=== PATIENT | male | born 1970 | race Caucasian/White ===

== ENCOUNTER 2016-06-06 12:37 | Day surgery (SDC) | payer OTHER ==
[~2016-06-06 12:37] MED LIST: BUPIVACAINE HCL/PF 0.5% (5MG/ML) 10 ML VIAL IJ ONE
[2016-06-06] MEDS ORDERED: PIPERACILLIN/TAZOB 4.5 GM/100 ML PRE-DOCKED IVPB ONE (12:57)
[2016-06-06] MEDS ORDERED: LORAZEPAM CARPU-JECT 2 MG/ML DISP.SYRIN IVPUSH ONE (12:58)
[2016-06-06] MEDS ORDERED: DEXTROSE 5%-0.45% SALINE 1,000 ML IV SCH (13:00)
[2016-06-06] MEDS ORDERED: LORAZEPAM CARPU-JECT 2 MG/ML DISP.SYRIN ONE (13:00)
[2016-06-06] MEDS ORDERED: PIPERACILLIN/TAZOB 4.5 GM 100 ML IVPB ONE (13:01)
[2016-06-06 13:20] LABS: BASOPHIL 0.6 % (0-2.0); EOSINOPHIL 2.2 % (0-4.5); MCH 35.5 pg (25.7-33.7); MCHC 35.1 g/dl (32.0-35.9); MEAN CELL VOLUME 101.1 fl (80-96); MEAN PLT VOLUME 8.6 fl (7.5-11.1); NEUTROPHILS 60.6 % (42.8-82.8); PLATELET COUNT 103 K/MM3 (134-434); RDW 12.2 % (11.9-15.9); WHITE BLOOD COUNT 4.7 K/mm3 (4.0-10.0)
--- NOTE | 2016-06-06 13:36 | HP ---
Admitting History and Physical - Admission Chief Complaint: Redness and "bulging" near his belly button x 2 days History of Present Illness: 45 male sent by PMD for evaluation of an umbilical hernia Patient states that he had a known umbilical hernia x 10 years and had never had it repaired States that he was lifting heavy objects when he notice a bulge at the area The bulge has persisted and he noticed that the area became red and swollen x 2 days No nausea/vomiting No fevers/chills +BM History Source: Patient Limitations to Obtaining History: No Limitations - Past Surgical History Past Surgical History: Yes: Hernia Repair (Right inguinal hernia repair) - Smoking History Smoking history: Former smoker Have you smoked in the past 12 months: No If you are a former smoker, when did you quit?: 2016 - Alcohol/Substance Use Hx Alcohol Use: No History of Substance Use: reports: None - Social History ADL: Independent Home Medications - Allergies Allergies/Adverse Reactions: Allergies Allergy/AdvReac Type Severity Reaction Status Date / Time No Known Allergies Allergy Verified 06/06/16 12:40 - Home Medications Home Medications: Ambulatory Orders NK [No Known Home Medication] 06/06/16 Family Disease History - Family Disease History Family History: Unremarkable Review of Systems - Review of Systems Constitutional: denies: Chills, Fever HENT: reports: No Symptoms Neck: reports: No Symptoms Cardiovascular: denies: Chest Pain Respiratory: denies: Cough Gastrointestinal: denies: Abdominal Pain, Nausea, Vomiting Genitourinary: reports: No Symptoms Neurological: reports: No Symptoms. denies: Change in LOC Pain Intensity: 1 Physical Examination Vital Signs: Vital Signs Temperature 98.1 F 06/06/16 12:41 Pulse Rate 82 06/06/16 13:30 Respiratory Rate 20 06/06/16 13:30 Blood Pressure 173/111 06/06/16 13:30 O2 Sat by Pulse Oximetry (%) 100 06/06/16 13:30 Constitutional: Yes: Calm HENT: Yes: WNL Neck: Yes: Supple Cardiovascular: Yes: Regular Rate and Rhythm Respiratory: Yes: CTA Bilaterally Gastrointestinal: Yes: Soft, Tenderness (Mild tenderness at umbilicus), Other ( Umbilicus: nonreducible hernia, + erythema within the umbilicus extending approximately 4cm circumferentially). No: Distention Extremities: Yes: WNL Neurological: Yes: Alert, Oriented Labs: CBC, BMP 06/06/16 13:13 Problem List - Problems (1) Incarcerated umbilical hernia Code(s): K42.0 - UMBILICAL HERNIA WITH OBSTRUCTION, WITHOUT GANGRENE Assessment/Plan 45 male with incarcerated umbilical hernia Possible bowel incarceration NPO IV fluids Antibiotics For emergent open umbilical hernia repair with possible mesh possible bowel resection Risks and benefits explained He understands and agrees
--- NOTE | 2016-06-06 13:36 | PDOC ---
History of Present Illness <Amy Salazar - Last Filed: 06/06/16 13:37> - General History Source: Patient Exam Limitations: No Limitations - History of Present Illness Initial Comments: 06/06/16 13:38 45-year-old male presents with atraumatic mild to moderate periumbilical abdominal pain for the past several days after moving a heavy piece of furniture with increased redness to the umbilicus and the surrounding area. Pain is constant, nonradiating, not positional, without associated nausea/ vomiting/diarrhea. Patient denies fever or chills. Patient was seen by Dr. gutierrez not increased in size of surgery and diagnosed with incarcerated umbilical hernia and referred to the ER further evaluation and treatment. REVIEW OF SYSTEMS CONSTITUTIONAL: No fever, no chills, no fatigue EYES: No visual changes ENT: No ear pain, no sore throat CARDIOVASCULAR: No chest pain, no palpitations RESPIRATORY: No cough, no SOB GI: + abdominal pain, no nausea, no vomiting, no constipation, no diarrhea GENITOURINARY: No dysuria, no frequency, no hematuria MUSKULOSKELETAL: No backpain, no joint pain, no myalgias SKIN: No rash NEURO: No headache EXAMINATION CONSTITUTIONAL: Well-appearing; well-nourished; in no apparent distress HEAD: Normocephalic; atraumatic EYES: PERRL; EOM intact ENMT: External appears normal; normal oropharynx NECK: Supple; non-tender; no cervical lymphadenopathy CARD: Normal S1, S2; no murmurs, rubs, or gallops RESP: Normal chest excursion with respiration; breath sounds clear and equal bilaterally; no wheezes, rhonchi, or rales ABD: Soft, non-distended; + incarcerated umbilical hernia with a hard mass palpable within the hernial sac with surrounding area of erythema; EXT: Normal ROM in all four extremities; non-tender to palpation; distal pulses intact SKIN: Warm, dry, no rash NEURO: No focal neurological deficiencies. <Robert Buck - Last Filed: 06/06/16 13:40> - General Chief Complaint: Pain, Acute Stated Complaint: INCARCENATRD UNBILICAL HERNIA Time Seen by Provider: 06/06/16 12:41 Past History <Amy Salazar - Last Filed: 06/06/16 13:37> - Past Medical History GI Disorders: Yes (UMBILICAL HERNIA X 10YEARS.) - Psycho/Social/Smoking Cessation Hx Anxiety: No Suicidal Ideation: No Smoking History: Former smoker Have you smoked in the past 12 months: No If you are a former smoker, when did you quit?: 2016 Information on smoking cessation initiated: No Hx Alcohol Use: No Drug/Substance Use Hx: No Substance Use Type: None <Robert Buck - Last Filed: 06/06/16 13:40> - Past Medical History Allergies/Adverse Reactions: Allergies Allergy/AdvReac Type Severity Reaction Status Date / Time No Known Allergies Allergy Verified 06/06/16 12:40 Home Medications: Ambulatory Orders NK [No Known Home Medication] 06/06/16 *Physical Exam - Vital Signs Last Vital Signs Temp Pulse Resp BP Pulse Ox 98.1 F 82 20 173/111 100 06/06/16 12:41 06/06/16 13:30 06/06/16 13:30 06/06/16 13:30 06/06/16 13:30 <Amy Salazar - Last Filed: 06/06/16 13:37> - Vital Signs Last Vital Signs Temp Pulse Resp BP Pulse Ox 98.1 F 82 20 173/111 100 06/06/16 12:41 06/06/16 13:30 06/06/16 13:30 06/06/16 13:30 06/06/16 13:30 <Robert Buck - Last Filed: 06/06/16 13:40> Heart Score/ECG Review - ECG Intrepretation Comment:: 06/06/16 13:37 Vent rate: 89 bpm WI interval: 124 ms QRS duration: 84 ms Normal sinus rhythm Normal EKG <Amy Salazar - Last Filed: 06/06/16 13:37> ED Treatment Course - LABORATORY CBC & Chemistry Diagram: 06/06/16 13:13 06/06/16 13:13 - ADDITIONAL ORDERS Additional order review: 06/06/16 13:13 RBC 4.66 MCV 101.1 H MCHC 35.1 RDW 12.2 MPV 8.6 Neutrophils % 60.6 Lymphocytes % 20.2 Monocytes % 16.4 H Eosinophils % 2.2 Basophils % 0.6 - Medications Given in the ED: ED Medications Discontinued Medications Generic Name Dose Route Start Last Admin Trade Name Freq PRN Reason Stop Dose Admin Lorazepam 1 mg 06/06/16 12:58 06/06/16 13:10 Ativan Injection - IVPUSH 06/06/16 12:59 1 mg ONCE ONE Administration Piperacillin Sod/Tazobactam Sod 4.5 gm 06/06/16 12:57 06/06/16 13:10 Zosyn 4.5gm Ivpb (Pre-Docked) IVPB 06/06/16 12:58 4.5 gm ONCE ONE Administration <Amy Salazar - Last Filed: 06/06/16 13:37> - LABORATORY CBC & Chemistry Diagram: 06/06/16 13:13 06/06/16 13:13 - ADDITIONAL ORDERS Additional order review: 06/06/16 13:13 RBC 4.66 MCV 101.1 H MCHC 35.1 RDW 12.2 MPV 8.6 Neutrophils % 60.6 Lymphocytes % 20.2 Monocytes % 16.4 H Eosinophils % 2.2 Basophils % 0.6 - RADIOLOGY Radiology Studies Ordered: Category Date Time Status CHEST - PA [RAD] Stat Radiology 06/06/16 12:57 Ordered - Medications Given in the ED: ED Medications Discontinued Medications Generic Name Dose Route Start Last Admin Trade Name Freq PRN Reason Stop Dose Admin Lorazepam 1 mg 06/06/16 12:58 06/06/16 13:10 Ativan Injection - IVPUSH 06/06/16 12:59 1 mg ONCE ONE Administration Piperacillin Sod/Tazobactam Sod 4.5 gm 06/06/16 12:57 06/06/16 13:10 Zosyn 4.5gm Ivpb (Pre-Docked) IVPB 06/06/16 12:58 4.5 gm ONCE ONE Administration <Robert Buck - Last Filed: 06/06/16 13:40> Medical Decision Making - Medical Decision Making 06/06/16 13:40 Patient is a 45-year-old male with acute incarcerated umbilical hernia with possible strangulation who requires emergent exploratory laparotomy. We'll administer antibiotics; will hydrate; we'll administer Ativan for anxiety likely causing elevated blood pressure in the ER. Will admit to Dr. gutierrez of surgery to the OR. <Robert Buck - Last Filed: 06/06/16 13:40> *DC/Admit/Observation/Transfer <Amy Salazar - Last Filed: 06/06/16 13:37> - Discharge Dispostion Admit: Yes <Robert Buck - Last Filed: 06/06/16 13:40> Diagnosis at time of Disposition: Incarcerated hernia - Referrals Referrals: Terell Gutierrez MD [Primary Care Provider] -
[2016-06-06 13:40] LABS: INR 1.15 (0.82-1.09); PROTHROMBIN TIME (PATIENT) 12.7 SEC (9.98-11.88)
[2016-06-06] MEDS ORDERED: HYDROmorphone HCL CARPU-JECT 1 MG/1 ML DISP.SYRIN IVPB PRN (13:40)
[2016-06-06] MEDS ORDERED: ONDANSETRON 4 MG/2 ML VIAL IVPB PRN (13:40)
[2016-06-06] MEDS ORDERED: LACTATED RINGERS SOLUTION 1,000 ML IV SCH (13:45)
[2016-06-06 13:46] LABS: ALBUMIN 3.9 g/dl (3.4-5.0); ANION GAP 10 (8-16); BILIRUBIN,TOTAL 1.2 mg/dL (0.2-1.0); CALCIUM 8.9 mg/dL (8.5-10.1); CO2 26 mmol/L (21-32); CREATININE 0.8 mg/dL (0.7-1.3); GLUCOSE,RANDOM 128 mg/dL (74-106); SGOT/AST 205 U/L (15-37); SGPT/ALT 239 U/L (12-78); TOT PROT 6.9 g/dl (6.4-8.2)
[2016-06-06 13:47] LABS: ALK PHOS 83 U/L (45-117)
[2016-06-06] MEDS ORDERED: MIDAZOLAM HCL 2 MG/2 ML SINGLE DOSE VIAL ONE (13:47)
[2016-06-06] MEDS ORDERED: PROPOFOL 20 ML ONE (13:47)
[2016-06-06] MEDS ORDERED: SUCCINYLCHOLINE CHLORIDE 200 MG/10 ML VIAL ONE (13:47)
[2016-06-06] MEDS ORDERED: ROCURONIUM BROMIDE 50 MG/5 ML VIAL ONE (13:49)
[2016-06-06] MEDS ORDERED: LIDOCAINE HCL/PF 2% SDV 5ML VIAL ONE (13:49)
[2016-06-06] MEDS ORDERED: LABETALOL HCL 5 MG/1 ML (100MG/20 ML VIAL) ONE (13:55)
[2016-06-06] MEDS ORDERED: hydrALAZINE HCL 20 MG/ML VIAL ONE (14:16)
[2016-06-06] MEDS ORDERED: DEXAMETHASONE SOD PHOSPHATE 4 MG/1 ML VIAL ONE (14:40)
[2016-06-06] MEDS ORDERED: GLYCOPYRROLATE 0.2 MG/1 ML VIAL ONE (15:10)
[2016-06-06] MEDS ORDERED: NEOSTIGMINE METHYLSULFATE 0.5 MG/ML - 10 ML MDV ONE (15:10)
[2016-06-06] MEDS ORDERED: KETOROLAC TROMETHAMINE 30 MG/1 ML VIAL ONE (15:11)
[2016-06-06] MEDS ORDERED: PHENYLEPHRINE HCL 10 MG/1 ML SINGLE DOSE VIAL ONE (15:19)
[2016-06-06] MEDS ORDERED: BUPIVACAINE HCL/PF 0.5% (5MG/ML) 10 ML VIAL IJ ONE (15:34)
[2016-06-06] MEDS ORDERED: amLODIPine BESYLATE 5 MG TABLET (FP) PO ONE (15:40)
[2016-06-06] MEDS ORDERED: OXYCODONE/APAP 5/325MG COMBO TABLET PO PRN (15:47)
[2016-06-06] MEDS ORDERED: ACETAMINOPHEN 325 MG TABLET (FP) PO PRN (15:51)
[2016-06-06] MEDS ORDERED: oxyCODONE HCL 5 MG TABLET PO PRN (15:51)
--- NOTE | 2016-06-06 15:54 | OP ---
Operative Note - Note: Operative Date: 06/06/16 Pre-Operative Diagnosis: Incarcerated umbilical hernia Operation: Open repair of incarcerated umbilical hernia Findings: Incarcerated omentum Post-Operative Diagnosis: Same as Pre-op Surgeon: Terell Coronado First Aid Teacher: Marko Mccloud Anesthesia: General Specimens Removed: Hernia content Estimated Blood Loss (mls): 30 Operative Report Dictated: Yes
--- NOTE | 2016-06-06 15:54 | CONSULT ---
Consult Reason for Consultation:: htn - History of Present Illness History of Present Illness: 45 male sent by PMD for evaluation of an umbilical hernia Patient states that he had a known umbilical hernia x 10 years and had never had it repaired States that he was lifting heavy objects when he notice a bulge at the area The bulge has persisted and he noticed that the area became red and swollen x 2 days pt noted with high bp-given labetolol and hydralazine no cp or sob - Past Medical History Cardio/Vascular: Yes: HTN - Past Surgical History Past Surgical History: Yes: Hernia Repair (Right inguinal hernia repair) - Alcohol/Substance Use Hx Alcohol Use: No History of Substance Use: reports: None - Smoking History Smoking history: Former smoker Have you smoked in the past 12 months: No If you are a former smoker, when did you quit?: 2016 - Social History ADL: Independent Home Medications - Allergies Allergies/Adverse Reactions: Allergies Allergy/AdvReac Type Severity Reaction Status Date / Time No Known Allergies Allergy Verified 06/06/16 12:40 - Home Medications Home Medications: Ambulatory Orders Docusate Sodium [Colace -] 100 mg PO TID #90 capsule 06/06/16 Oxycodone HCl/Acetaminophen [Percocet 5-325 mg Tablet] 1 - 2 tab PO Q6H #28 tab MDD 4 06/06/16 Review of Systems - Review of Systems Cardiovascular: denies: Chest Pain Respiratory: denies: SOB Gastrointestinal: reports: Abdominal Pain Physical Exam Vital Signs: Vital Signs Temperature 98.1 F 06/06/16 12:41 Pulse Rate 82 06/06/16 13:30 Respiratory Rate 20 06/06/16 13:30 Blood Pressure 173/111 06/06/16 13:30 O2 Sat by Pulse Oximetry (%) 100 06/06/16 13:30 Cardiovascular: Yes: Regular Rate and Rhythm Respiratory: Yes: Regular, CTA Bilaterally Problem List - Problems (1) Incarcerated umbilical hernia Assessment/Plan: s/p repair as per surgery Code(s): K42.0 - UMBILICAL HERNIA WITH OBSTRUCTION, WITHOUT GANGRENE (2) HTN (hypertension) Assessment/Plan: norvasc 5 mg daily bystolic 10 mg daily ekg cardio Code(s): I10 - ESSENTIAL (PRIMARY) HYPERTENSION (3) Abnormal LFTs Assessment/Plan: monitor will need w/u as outpatient Code(s): R79.89 - OTHER SPECIFIED ABNORMAL FINDINGS OF BLOOD CHEMISTRY
[2016-06-06] MEDS ORDERED: ONDANSETRON 4 MG/2 ML VIAL IVPUSH PRN (15:58)
[2016-06-06] MEDS: HYDROmorphone HCL CARPU-JECT 1 MG/1 ML DISP.SYRIN IVPUSH PRN ×2 (16:00→16:10)
--- NOTE | 2016-06-06 16:00 | SURG ---
Surgery Neon Technician Note Neon Technician: Marko Mccloud PA-C Date of Service: 06/06/16 Diagnosis: Incarcerated umbilical hernia Procedure: Open repair of incarcerated umbilical hernia (incarcerated omentum) I was present for the entirety of the operative procedure. For further detail, please refer to operative report. Visit type - Case Type Case Type: ED Admission - Emergency Emergency Visit: Yes ED Registration Date: 06/06/16 Care time: The patient presented to the Emergency Department on the above date and was hospitalized for further evaluation of their emergent condition. - New patient This patient is new to me today: Yes Date on this admission: 06/06/16
[2016-06-06] MEDS ORDERED: HYDROmorphone HCL CARPU-JECT 2 MG/1 ML DISP.SYRIN ONE (16:08)
[2016-06-06 18:16] VITALS: BMI 25.9
[2016-06-07 07:42] LABS: BASOPHIL 0.1 % (0-2.0); MCH 36.3 pg (25.7-33.7); MCHC 35.7 g/dl (32.0-35.9); MEAN CELL VOLUME 101.7 fl (80-96); MEAN PLT VOLUME 9.1 fl (7.5-11.1); NEUTROPHILS 84.2 % (42.8-82.8); PLATELET COUNT 106 K/MM3 (134-434); RDW 11.9 % (11.9-15.9)
--- NOTE | 2016-06-07 07:49 | OP ---
DATE OF OPERATION: 06/06/2016 SURGEON: Terell Coronado MD BODS DEVELOPER: GAMA De Leon PREOPERATIVE DIAGNOSIS: Incarcerated umbilical hernia. POSTOPERATIVE DIAGNOSIS: Incarcerated umbilical hernia with omental content. PROCEDURE: Open repair of incarcerated umbilical hernia with primary repair. SPECIMEN: Hernia content. ESTIMATED BLOOD LOSS: 30 mL. DRAINS: None. ANESTHESIA: GET. REASON FOR PROCEDURE: This is a 45-year-old gentleman who was sent for evaluation for possible incarcerated umbilical hernia. On exam, there was noted to be erythema and an irreducible umbilical hernia. Because of this, he was sent to the emergency room and immediately consented for an emergent open repair of an incarcerated umbilical hernia, possible mesh, possible bowel resection. The risks and benefits of the procedure were explained. These included bleeding, infection, recurrent hernia, DC, DVT, PE, injury to surrounding abdominal structures, mesh infection, staple line dehiscence, fascial dehiscence. In addition, in the holding area prior to surgery his blood pressure was noted to be very elevated, in the 200s systolic over 100s diastolic. His blood pressure was lowered with medication by Anesthesia. However, because of this, the risks of DC and stroke were also explained to him. He understood and informed consent was obtained. DESCRIPTION OF PROCEDURE: Patient was placed supine on the operating room table. He underwent general endotracheal intubation. The abdomen was prepped and draped in the usual sterile fashion. Timeout was performed. A supraumbilical curvilinear incision was made through the skin and subcutaneous tissue down to the level of the fascia. The incarcerated omental contents were immediately noted. Carefully circumferentially the contents were freed from the fascia. The fascia had to be opened inferiorly in order to further free the incarcerated hernia content. Once circumferentially freed, the incarcerated hernia content was examined and noted to be omentum. The omentum was clamped with Lesa clamps in multiple locations, excised, and removed as specimen. Silk 2-0 sutures were used to tie the omentum below the clamps. No bowel was noted to be included within the incarcerated hernia. Hemostasis was achieved with further silk sutures and electrocautery. The fascia was noted to be freely cleared intraabdominally with no underlying adhesions. The fascia was grasped with Pat clamps and closed using No. 1 Prolene suture x4 in figure-of-8 fashion. The wound was irrigated and suctioned, noted to be dry. The umbilicus was reapproximated to the fascia with 3-0 Vicryl sutures. The skin was closed using 4-0 Biosyn. Sterile dressings were applied. The patient tolerated the procedure well. He was continued to be observed in the hospital because of his high blood pressure. Description of the events was explained to both him and the family. Eyad SNYDER/[id number] MTDD
--- NOTE | 2016-06-07 08:19 | PN ---
Progress Note (short form) - Note Progress Note: POD#1 Pt without complaints of nausea/emesis. He tolerated a diet last pm and passed a small amount of flatus. Voiding on his own. Pt states that he had erythema to his skin prior to surgery around the umbilicus. Vital Signs Period Temp Pulse Resp BP Sys/Pearl Pulse Ox Last 24 Hr 97.7 F-98.4 F 82-95 18-22 130-209/87-126 94-100 PE: GEN: alert and appears comfortable Abd: Soft, non-distended, inc tenderness. Mild erythema to around the skin the skin approx 3x3cm. Steri-strips in place, no drainage. Dressing changed and replaced with new 4x4 gauze/tegaderm. Abd binder in place. CBC, BMP 02/18/17 06:00 02/18/17 06:00 Problem List - Problems (1) Incarcerated umbilical hernia Assessment/Plan: POD#1 s/p umbilical hernia repair for incarceration. Doing well surgically. Continue diet as tolerated Pain management OOB/ambulate Awaiting medical consult, pt with elevated BP, now improved Code(s): K42.0 - UMBILICAL HERNIA WITH OBSTRUCTION, WITHOUT GANGRENE
[2016-06-07 08:28] LABS: CALCIUM 8.7 mg/dL (8.5-10.1); CREATININE 0.7 mg/dL (0.7-1.3)
[2016-06-07 08:36] LABS: ALBUMIN 3.3 g/dl (3.4-5.0); ALK PHOS 73 U/L (45-117); ANION GAP 10 (8-16); BILIRUBIN,TOTAL 0.7 mg/dL (0.2-1.0); CALCIUM 8.4 mg/dL (8.5-10.1); CO2 26 mmol/L (21-32); CREATININE 0.7 mg/dL (0.7-1.3); GLUCOSE,RANDOM 112 mg/dL (74-106); SGOT/AST 95 U/L (15-37); SGPT/ALT 165 U/L (12-78); THYROID STIMULATING HORMONE 0.78 uIU/ml (0.358-3.74); TOT PROT 5.9 g/dl (6.4-8.2)
[2016-06-07] MEDS ORDERED: NEBIVOLOL 10 MG TABLET (FP) PO SCH (10:00)
[2016-06-07] MEDS ORDERED: amLODIPine BESYLATE 5 MG TABLET (FP) PO SCH (10:00)
--- NOTE | 2016-06-07 10:13 | DS ---
Physical Examination Vital Signs: Vital Signs Temperature 98.1 F 06/07/16 06:00 Pulse Rate 83 06/07/16 06:00 Respiratory Rate 20 06/07/16 06:00 Blood Pressure 135/94 06/07/16 06:00 O2 Sat by Pulse Oximetry (%) 97 06/06/16 21:00 Cardiovascular: Yes: WNL Respiratory: Yes: WNL Gastrointestinal: Yes: WNL Wound/Incision: Yes: Dressing Dry and Intact Labs: CBC, BMP 06/07/16 06:00 06/07/16 06:00 Discharge Summary Reason For Visit: INCARCERATED UNBILICAL HERNIA Current Active Problems Abnormal LFTs (Acute) HTN (hypertension) (Acute) Incarcerated hernia (Acute) Incarcerated umbilical hernia (Acute) Hospital Course: (1) Incarcerated umbilical hernia Assessment/Plan: s/p repair as per surgery Code(s): K42.0 - UMBILICAL HERNIA WITH OBSTRUCTION, WITHOUT GANGRENE (2) HTN (hypertension) Assessment/Plan: norvasc 5 mg daily bystolic 10 mg daily ekg cardio Code(s): I10 - ESSENTIAL (PRIMARY) HYPERTENSION (3) Abnormal LFTs Assessment/Plan: monitor will need w/u as outpatient Code(s): R79.89 - OTHER SPECIFIED ABNORMAL FINDINGS OF BLOOD CHEMISTRY DISCHARGE IF OK WITH SURGERY CASE D/W PCP 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 You may walk unlimited cintia of and climb stairs. You may resume driving the car when you feel safe and comfortable behind the wheel. Wound care If you have a bandage, leave it on, and keep dry for 48-72 hours. After that time discard the outer bandage. If there are tapes on the skin under the outer bandage, leave them in place. They will peel off in the next 7 to 10 days. Do Not Peel them off. You may shower the day after surgery. If there are tapes present on the skin, you may shower over them. Diet There are no dietary restrictions. Eat healthy, high-fiber foods. Drink 6 to 8 glasses of liquid each day. This will assist in keeping your bowels are regular. Pain management You may take Tylenol or acetaminophen or Ibuprofen (for example, Motrin, Advil etc.) Any pain prescription medication ordered should be taken as prescribed for moderate to severe pain. Call Dr. Coronado for any of the following: Severe pain not relieved by medication Fever of 101 or higher Excessive bleeding or drainage on dressing Inability to urinate Call the office for an appointment in seven days. Referrals: Terell Coronado MD [Primary Care Provider] - Disposition: HOME - Home Medications Comprehensive Discharge Medication List: Ambulatory Orders Docusate Sodium [Colace -] 100 mg PO TID #90 capsule 06/06/16 Oxycodone HCl/Acetaminophen [Percocet 5-325 mg Tablet] 1 - 2 tab PO Q6H #28 tab MDD 4 06/06/16
[2016-06-07 11:57] VITALS: BP 156/97; PULSE 75; TEMP 99
--- NOTE | 2016-06-07 13:30 | EKG ---
Test Reason : Blood Pressure : / mmHG Vent. Rate : 078 BPM Atrial Rate : 078 BPM P-R Int : 134 ms QRS Dur : 086 ms QT Int : 430 ms P-R-T Axes : 038 031 048 degrees QTc Int : 490 ms NORMAL SINUS RHYTHM NONSPECIFIC T WAVE ABNORMALITY PROLONGED QT ABNORMAL ECG WHEN COMPARED WITH ECG OF 06-JUN-2016 13:02, NO SIGNIFICANT CHANGE WAS FOUND Confirmed by JERRI MIX MD ([id number]) on 06/07/2016 1:29:54 PM Referred By: ALESSIA Confirmed By:JERRI MIX MD
--- NOTE | 2016-06-07 13:41 | EKG ---
Test Reason : Blood Pressure : / mmHG Vent. Rate : 089 BPM Atrial Rate : 089 BPM P-R Int : 124 ms QRS Dur : 084 ms QT Int : 374 ms P-R-T Axes : 043 019 036 degrees QTc Int : 455 ms NORMAL SINUS RHYTHM NORMAL ECG NO PREVIOUS ECGS AVAILABLE Confirmed by JERRI MIX MD ([id number]) on 06/07/2016 1:41:04 PM Referred By: Confirmed By:JERRI MIX MD
--- NOTE | 2016-06-10 12:44 | PATH ---
Surgical Pathology Report Patient Name: CARLOS CAMEJO [facility]. Rec. #: [id number] /Age/Gender: 1970 (Age: 45) / M Account: [id number] Location: AMBULATORY SURG Taken: 06/06/2016 Received: 06/09/2016 Reported: 06/10/2016 Physicians: Terell Coronado M.D. Specimen(s) Received CONTENTS OF HERNIA Clinical History Incarcerated umbilical hernia Final Diagnosis HERNIA CONTENT, INCARCERATED UMBILICAL HERNIA REPAIR: BENIGN FIBROMEMBRANOUS AND FATTY TISSUE WITH HEMORRHAGE AND FAT NECROSIS. Electronically Signed Warren Ford M.D. Gross Description Received in formalin, labeled "hernia content" is a 12.0 x 7.0 x 2.5 cm aggregate of multiple nunn-eason, irregular portions of fibromembranous tissue and attached fat, consistent with a hernia sac. No masses are identified. Silverware Supervisor sections are submitted in 2 cassettes. /06/09/2016 [facility]06/09/2016
== END 2016-06-07 11:05 | disposition home or self-care (01) ==
LOC: JER 12:37 → UNDOADMIN 13:36 → JERBED 13:36 → JASUSAT 13:36 → JER 13:40 → JOR 13:40 → J8W 17:50 → JASUSAT 06-07 11:05
PROVIDERS: ATTEND Surgery
PROC: 0WQF0ZZ Repair Abdominal Wall, Open Approach (ICD-10-PCS; principal; 2016-06-06 13:00)
DX: K42.0 Umbilical hernia with obstruction, without gangrene (principal); I10 Essential (primary) hypertension
CPT/HCPCS: 36415; 80048; 80053; 80061; 83036; 83721; 84443; 85025; 85610; 86850; 86900; 86901; 88304-TC; 93005; 93010; 94760; 99285-25